=== PATIENT | female | born 1950 | race Hispanic/Latino ===

== ENCOUNTER 2017-05-31 15:17 | Outpatient (CLI) | payer MEDICARE, OTHER ==
--- NOTE | 2017-05-31 16:01 | Mammography Report ---
BILATERAL DIGITAL SCREENING MAMMOGRAM with CAD: 05/31/17 15:17:00 CLINICAL: Routine screening.Axshks-m-Ebif for Remicade. COMPARISON: 09/26/15 FINDINGS: There are bilateral scattered areas of fibroglandular density.A right Ccnmee-t-Coxe obscures a portion of the right upper breast.No mass, architectural distortion or suspicious calcifications. IMPRESSION: No mammographic evidence of malignancy. BI-RADS CATEGORY: 1 -- Negative RECOMMENDATION: Routine mammographic screening in one year. COMMENT: Patient follow-up letters are generated by our [employer] application.
== END 2017-05-31 15:18 | disposition home or self-care (01) ==
LOC: SPVWC 15:17
PROVIDERS: ATTEND Physician Assistant
DX: Z12.31 Encounter for screening mammogram for malignant neoplasm of breast (principal)
CPT/HCPCS: 77067

== ENCOUNTER 2018-06-06 12:53 | Outpatient (CLI) | payer MEDICARE, OTHER ==
--- NOTE | 2018-06-06 13:28 | Mammography Report ---
BILATERAL DIGITAL SCREENING MAMMOGRAM with CAD: 06/06/18 12:53:00 CLINICAL: Routine screening. COMPARISON: 05/31/17 FINDINGS: There are bilateral scattered areas of fibroglandular density.A right Unbnya-n-Fjde for Remicade obscures a portion of the upper right breast.No mass, architectural distortion or suspicious calcifications. IMPRESSION: No mammographic evidence of malignancy. BI-RADS CATEGORY: 1 -- Negative RECOMMENDATION: Routine mammographic screening in one year. COMMENT: Patient follow-up letters are generated by our [employer] application.
== END 2018-06-06 12:54 | disposition home or self-care (01) ==
LOC: SPVWC 12:53
PROVIDERS: ATTEND Surgery
DX: Z12.31 Encounter for screening mammogram for malignant neoplasm of breast (principal); E78.00 Pure hypercholesterolemia, unspecified; K21.9 Gastro-esophageal reflux disease without esophagitis
CPT/HCPCS: 77067